=== PATIENT | female | born 1940 | race Caucasian/White ===

== ENCOUNTER 2016-12-27 15:40 | Observation (INO) | payer BC ==
[2016-12-27 18:54] LABS: HEMOGLOBIN 14.3 gm/dl (12.3-15.3); RED BLOOD COUNT 4.81 M/UL (4.00-5.10); WHITE BLOOD COUNT 5.2 K/UL (4.5-11.0)
[2016-12-27 19:21] LABS: BUN/CREATININE RATIO 30 (0-10)
== END 2016-12-28 12:00 | disposition home or self-care (01) ==
LOC: ER1 15:40 → ZEROF 22:00
PROVIDERS: Emergency Medicine; ADMIT Internal Medicine
DX: R07.89 Other chest pain (principal); I10 Essential (primary) hypertension; E11.9 Type 2 diabetes mellitus without complications; M34.9 Systemic sclerosis, unspecified; F41.9 Anxiety disorder, unspecified; E78.5 Hyperlipidemia, unspecified; K21.9 Gastro-esophageal reflux disease without esophagitis; Z87.891 Personal history of nicotine dependence; Z82.49 Family history of ischemic heart disease and other diseases of the circulatory system; Z82.5 Family history of asthma and other chronic lower respiratory diseases; Z79.891 Long term (current) use of opiate analgesic; Z79.899 Other long term (current) drug therapy; Z90.49 Acquired absence of other specified parts of digestive tract; Z96.652 Presence of left artificial knee joint; Z98.890 Other specified postprocedural states
CPT/HCPCS: 36415; 74022; 78452; 80053; 80061; 81001; 82550; 82553; 83036; 83605; 83690; 83874; 84443; 84484; 85025; 87086; 93005; 93017; 96374; 96375; 96376; 99285; A9502; G0378; J2405; J2550; J2785; J7050; Q9962